=== PATIENT | female | born 1955 | race Two or more races ===

== ENCOUNTER 2017-05-19 12:06 | Emergency (ER) | payer MEDICAID ==
[2017-05-19 12:30] VITALS: BP 120/70
== END 2017-05-19 13:37 | disposition home or self-care (01) ==
LOC: ER 12:06
DX: J18.9 Pneumonia, unspecified organism (principal); J45.909 Unspecified asthma, uncomplicated; Z76.0 Encounter for issue of repeat prescription
CPT/HCPCS: 71046